=== PATIENT | male | born 1985 | race Caucasian/White ===

== ENCOUNTER 2021-06-29 12:43 | Emergency (ER) | payer MEDICARE ==
[~2021-06-29 12:43] MED LIST: ANTISEPTIC SKI237 ML TP; AUGMENTIN TAB875 MG PO; BACTROBAN15 GM TOP; NAPROSYN500 MG PO; ZYVOX600 MG PO
[2021-06-29] MEDS ORDERED: CEPHALEXIN500 MG PO (14:05)
== END 2021-06-29 14:15 | disposition home or self-care (01) ==
LOC: ER1 12:43
DX: L72.3 Sebaceous cyst (principal); R03.0 Elevated blood-pressure reading, without diagnosis of hypertension; F17.200 Nicotine dependence, unspecified, uncomplicated
CPT/HCPCS: 99283

== ENCOUNTER 2022-01-10 17:19 | Inpatient (IN) | payer OTHER ==
[~2022-01-10] VITALS: Ht 182.9 cm; Wt 95.3 kg
[~2022-01-10 17:19] MED LIST changes: +CEPHALEXIN500 MG PO
[2022-01-10 20:50] LABS: HEMOGLOBIN 11.9 gm/dl (14.0-17.5); RED BLOOD COUNT 3.99 M/UL (4.20-5.50); WHITE BLOOD COUNT 7.6 K/UL (4.5-11.0)
[2022-01-10 21:15] LABS: BUN/CREATININE RATIO 11 (0-10)
[2022-01-11 08:25] LABS: RED BLOOD COUNT 4.03 M/UL (4.20-5.50); WHITE BLOOD COUNT 9.7 K/UL (4.5-11.0)
[2022-01-11 08:51] LABS: BUN/CREATININE RATIO 11 (0-10)
[2022-01-11] MEDS ORDERED: BUPRENORPHIN-N1 EACH SL (10:56)
[2022-01-11] MEDS ORDERED: IBUPROFEN200 MG PO (10:57)
[2022-01-12 07:41] LABS: RED BLOOD COUNT 4.14 M/UL (4.20-5.50); WHITE BLOOD COUNT 9.7 K/UL (4.5-11.0)
[2022-01-12 08:05] LABS: BUN/CREATININE RATIO 12 (0-10)
[2022-01-13 04:42] LABS: HEMOGLOBIN 12.6 gm/dl (14.0-17.5); RED BLOOD COUNT 4.34 M/UL (4.20-5.50); WHITE BLOOD COUNT 9.4 K/UL (4.5-11.0)
[2022-01-13 04:55] LABS: BUN/CREATININE RATIO 14 (0-10)
--- NOTE | 2022-01-13 16:01 | NUR ---
01/12/[address] BELL REGARDING PT PICC LINE ORDER, WILL HOLD OFF ON PLACEMENT UNTIL PT IS SEEN BY YUDITH MONROE ON 01/13/22 FOR RECOMMENDATIONS 01/13/[address] MONROE REGARDING PICC LINE PLACEMENT, DR. MONROE WAITING ON FINAL CULTURE REPORT BEFORE ABX RECOMMENDATION, PT IS REFUSING LTAC/SWING BED STAY FOR ABX THERAPY AT THIS TIME, PER MD DR. MABRY WILL WAITING UNTIL FINAL CULTURE IS BACK BEFORE PLACING PICC LINE.
[2022-01-14] MEDS ORDERED: LISINOPRIL10 MG PO (12:07)
--- NOTE | 2022-01-14 13:34 | NUR ---
01/14/22 1100 SHORT CAM BOOT PROVIDED FOR PT
--- NOTE | 2022-01-14 13:53 | NUR ---
@[id number] MABRY PT IS BEING DC HOME WITH OUTPATIENT TREATMENT NO NEED FOR PICC LINE AT THIS TIME OK TO CANCEL CONSULT FOR PICC NURSE
[2022-01-15 07:12] LABS: HIV AB/P24 AG SCREEN Non Reactive (Non Reactive)
[2022-01-15 08:16] LABS: RPR Non Reactive (Non Reactive)
[2022-01-15 11:16] LABS: HBSAG SCREEN Negative (Negative); HEP B CORE AB, TOT Positive (Negative); HEP C VIRUS AB >11.0 (0.0-0.9)
== END 2022-01-14 13:48 | disposition home or self-care (01) | DRG 871 ==
LOC: ER1 17:19 → M/S 21:05 → CDU 21:05 → M/S 23:08
PROVIDERS: Family Medicine; Internal Medicine; Internal Medicine Infectious Disease; ADMIT Internal Medicine
PROC: 3E03329 Introduction of Other Anti-infective into Peripheral Vein, Percutaneous Approach (ICD-10-PCS; 2022-01-10)
PROC: B24BZZZ Ultrasonography of Heart with Aorta (ICD-10-PCS; principal; 2022-01-12)
DX: A41.02 Sepsis due to Methicillin resistant Staphylococcus aureus (principal); I33.0 Acute and subacute infective endocarditis; F11.20 Opioid dependence, uncomplicated; Z20.822 Contact with and (suspected) exposure to COVID-19; L03.116 Cellulitis of left lower limb; I76 Septic arterial embolism; M79.672 Pain in left foot; I08.1 Rheumatic disorders of both mitral and tricuspid valves; I10 Essential (primary) hypertension; D64.9 Anemia, unspecified; F19.10 Other psychoactive substance abuse, uncomplicated; F17.210 Nicotine dependence, cigarettes, uncomplicated; Z90.49 Acquired absence of other specified parts of digestive tract; Z72.89 Other problems related to lifestyle
CPT/HCPCS: ECHO; 36415; 71046; 73721; 80053; 80202; 81001; 82550; 82553; 83605; 83735; 83880; 84100; 84484; 85025; 85027; 85652; 86140; 86592; 86704; 86706; 86708; 86803; 87040; 87086; 87340; 87389; 93005; 93306; 93312; 93320; 94664; 94760; 96374; 97116-GP-CQ; 97161; 99285; J0878; J1200; J1650; J2185; J2250; J2270; J2310; J2920; J3010; J3370; J7030; J7070; Q0177; U0002

== ENCOUNTER → 2022-01-15 | Outpatient (CLI) | payer OTHER ==
[~2022-01-15] MED LIST changes: +BUPRENORPHIN-N1 EACH SL; +IBUPROFEN200 MG PO; +LISINOPRIL10 MG PO
== END ==
LOC: OPSV 07:36
DX: I38 Endocarditis, valve unspecified (principal)
CPT/HCPCS: 96365; J0878

== ENCOUNTER → 2022-01-16 | Outpatient (CLI) | payer OTHER ==
[~2022-01-16] VITALS: Ht 182.9 cm; Wt 95.3 kg
== END ==
LOC: OPSV 07:00
DX: I38 Endocarditis, valve unspecified (principal)
CPT/HCPCS: 96365; J0878

== ENCOUNTER → 2022-01-17 | Outpatient (CLI) | payer OTHER ==
[~2022-01-17] VITALS: Ht 182.9 cm; Wt 95.3 kg
== END ==
LOC: OPSV 07:00
DX: I38 Endocarditis, valve unspecified (principal)
CPT/HCPCS: 96365; J0878

== ENCOUNTER → 2022-01-18 | Outpatient (CLI) | payer OTHER ==
[~2022-01-18] VITALS: Ht 182.9 cm; Wt 95.3 kg
== END ==
LOC: OPSV 09:00
DX: I38 Endocarditis, valve unspecified (principal); Z88.0 Allergy status to penicillin
CPT/HCPCS: 96365; J0878

== ENCOUNTER → 2022-01-19 | Outpatient (CLI) | payer OTHER ==
[~2022-01-19] VITALS: Ht 182.9 cm; Wt 95.3 kg
== END ==
LOC: OPSV 09:00
DX: I38 Endocarditis, valve unspecified (principal)
CPT/HCPCS: 96365; J0878

== ENCOUNTER → 2022-01-20 | Outpatient (CLI) | payer OTHER ==
[~2022-01-20] VITALS: Ht 182.9 cm; Wt 95.3 kg
== END ==
LOC: OPSV 09:00
DX: I38 Endocarditis, valve unspecified (principal)
CPT/HCPCS: 96365; J0878

== ENCOUNTER → 2022-01-21 | Outpatient (CLI) | payer OTHER ==
[~2022-01-21] VITALS: Ht 182.9 cm; Wt 95.3 kg
== END ==
LOC: OPSV 09:00
DX: I38 Endocarditis, valve unspecified (principal)
CPT/HCPCS: 96365; J0878

== ENCOUNTER → 2022-01-22 | Outpatient (CLI) | payer OTHER ==
[~2022-01-22] VITALS: Ht 182.9 cm; Wt 95.3 kg
== END ==
LOC: OPSV 09:00
DX: I38 Endocarditis, valve unspecified (principal)
CPT/HCPCS: 96365; J0878

== ENCOUNTER → 2022-01-23 | Outpatient (CLI) | payer OTHER ==
[~2022-01-23] VITALS: Ht 182.9 cm; Wt 95.3 kg
== END ==
LOC: OPSV 07:00 → EROP 07:00
DX: I38 Endocarditis, valve unspecified (principal)
CPT/HCPCS: 96365; J0878

== ENCOUNTER → 2022-01-24 | Outpatient (CLI) | payer OTHER | LOC: OPSV 07:00 → EROP 09:14 | DX: I38 Endocarditis, valve unspecified (principal) | CPT/HCPCS: 96365; J0878 ==

== ENCOUNTER → 2022-01-25 | Outpatient (CLI) | payer OTHER ==
[~2022-01-25] VITALS: Ht 182.9 cm; Wt 95.3 kg
== END ==
LOC: OPSV 09:00
DX: I38 Endocarditis, valve unspecified (principal)
CPT/HCPCS: 96365; J0878

== ENCOUNTER → 2022-01-26 | Outpatient (CLI) | payer OTHER | LOC: OPSV 09:00 | DX: I38 Endocarditis, valve unspecified (principal) | CPT/HCPCS: 96365; J0878 ==

== ENCOUNTER → 2022-01-27 | Outpatient (CLI) | payer OTHER ==
[~2022-01-27] VITALS: Ht 182.9 cm; Wt 95.3 kg
== END ==
LOC: OPSV 09:00
DX: I38 Endocarditis, valve unspecified (principal)
CPT/HCPCS: 96365; J0878

== ENCOUNTER → 2022-01-28 | Outpatient (CLI) | payer OTHER ==
[~2022-01-28] VITALS: Ht 182.9 cm; Wt 95.3 kg
== END ==
LOC: OPSV 09:00
DX: I38 Endocarditis, valve unspecified (principal)
CPT/HCPCS: 96365; C1751; J0878

== ENCOUNTER → 2022-01-29 | Outpatient (CLI) | payer OTHER ==
[~2022-01-29] VITALS: Ht 182.9 cm; Wt 95.3 kg
== END ==
LOC: OPSV 09:00
DX: I38 Endocarditis, valve unspecified (principal)
CPT/HCPCS: 96365; J0878

== ENCOUNTER → 2022-01-30 | Outpatient (CLI) | payer OTHER | LOC: OPSV 07:00 → EROP 07:00 | DX: I38 Endocarditis, valve unspecified (principal) | CPT/HCPCS: 96365; J0878 ==

== ENCOUNTER → 2022-01-31 | Outpatient (CLI) | payer OTHER | LOC: OPSV 07:00 → EROP 07:00 | DX: I38 Endocarditis, valve unspecified (principal) | CPT/HCPCS: 96365; J0878 ==

== ENCOUNTER → 2022-02-01 | Outpatient (CLI) | payer OTHER ==
[~2022-02-01] VITALS: Ht 182.9 cm; Wt 95.3 kg
== END ==
LOC: OPSV 09:00
DX: I38 Endocarditis, valve unspecified (principal)
CPT/HCPCS: 96365; J0878

== ENCOUNTER → 2022-02-02 | Outpatient (CLI) | payer OTHER | LOC: OPSV 09:00 | DX: I38 Endocarditis, valve unspecified (principal) | CPT/HCPCS: 96365; J0878 ==

== ENCOUNTER → 2022-02-03 | Outpatient (CLI) | payer OTHER ==
[~2022-02-03] VITALS: Ht 182.9 cm; Wt 95.3 kg
== END ==
LOC: OPSV 09:00
DX: I38 Endocarditis, valve unspecified (principal)
CPT/HCPCS: 96365; J0878

== ENCOUNTER → 2022-02-04 | Outpatient (CLI) | payer OTHER | LOC: OPSV 09:00 | DX: I38 Endocarditis, valve unspecified (principal) | CPT/HCPCS: 96365; J0878 ==

== ENCOUNTER → 2022-02-07 | Outpatient (CLI) | payer OTHER ==
[~2022-02-07] VITALS: Ht 182.9 cm; Wt 95.3 kg
== END ==
LOC: OPSV 07:00 → EROP 07:00
DX: I38 Endocarditis, valve unspecified (principal)
CPT/HCPCS: 96365; J0878

== ENCOUNTER → 2022-02-08 | Outpatient (CLI) | payer OTHER | LOC: OPSV 07:56 | DX: I38 Endocarditis, valve unspecified (principal) | CPT/HCPCS: 96365; C1751; J0878 ==

== ENCOUNTER → 2022-02-09 | Outpatient (CLI) | payer OTHER ==
[2022-02-09 10:46] LABS: HEMOGLOBIN 14.2 gm/dl (14.0-17.5); RED BLOOD COUNT 4.71 M/UL (4.20-5.50); WHITE BLOOD COUNT 7.9 K/UL (4.5-11.0)
[2022-02-09 11:10] LABS: BUN/CREATININE RATIO 27 (0-10)
== END ==
LOC: OPSV 09:00
PROVIDERS: Internal Medicine Infectious Disease
DX: I38 Endocarditis, valve unspecified (principal)
CPT/HCPCS: 80048; 82550; 85025; 86140; 96365; J0878

== ENCOUNTER → 2022-02-10 | Outpatient (CLI) | payer OTHER ==
[~2022-02-10] VITALS: Ht 182.9 cm; Wt 95.3 kg
== END ==
LOC: OPSV 09:00
DX: I38 Endocarditis, valve unspecified (principal)
CPT/HCPCS: 96365; J0878

== ENCOUNTER → 2022-02-11 | Outpatient (CLI) | payer OTHER | LOC: OPSV 09:00 | DX: I38 Endocarditis, valve unspecified (principal); Z88.0 Allergy status to penicillin | CPT/HCPCS: 96365; J0878 ==

== ENCOUNTER → 2022-02-13 | Outpatient (CLI) | payer OTHER | LOC: OPSV 07:00 → EROP 11:46 | DX: I38 Endocarditis, valve unspecified (principal) | CPT/HCPCS: 96365; J0878 ==

== ENCOUNTER → 2022-02-14 | Outpatient (CLI) | payer OTHER | LOC: OPSV 07:00 | DX: I38 Endocarditis, valve unspecified (principal) | CPT/HCPCS: 96365; J0878 ==

== ENCOUNTER → 2022-02-15 | Outpatient (CLI) | payer OTHER | LOC: OPSV 09:00 | DX: I38 Endocarditis, valve unspecified (principal) | CPT/HCPCS: 96365; J0878 ==

== ENCOUNTER → 2022-02-16 | Outpatient (CLI) | payer OTHER ==
[~2022-02-16] VITALS: Ht 185.4 cm; Wt 95.3 kg
== END ==
LOC: OPSV 09:00
DX: I38 Endocarditis, valve unspecified (principal)
CPT/HCPCS: 96365; J0878

== ENCOUNTER → 2022-02-18 | Outpatient (CLI) | payer OTHER ==
[~2022-02-18] VITALS: Ht 182.9 cm; Wt 95.3 kg
[2022-02-18 10:36] LABS: HEMOGLOBIN 13.1 gm/dl (14.0-17.5); RED BLOOD COUNT 4.28 M/UL (4.20-5.50); WHITE BLOOD COUNT 10.2 K/UL (4.5-11.0)
[2022-02-18 10:55] LABS: BUN/CREATININE RATIO 24 (0-10)
== END ==
LOC: OPSV 09:00
PROVIDERS: Internal Medicine Infectious Disease
DX: I38 Endocarditis, valve unspecified (principal)
CPT/HCPCS: 80048; 82550; 85025; 86140; 96365; J0878

== ENCOUNTER → 2022-02-19 | Outpatient (CLI) | payer OTHER ==
[~2022-02-19] VITALS: Ht 182.9 cm; Wt 95.3 kg
== END ==
LOC: OPSV 07:00 → EROP 12:44
DX: I38 Endocarditis, valve unspecified (principal)
CPT/HCPCS: 96365; J0878

== ENCOUNTER → 2022-02-20 | Outpatient (CLI) | payer OTHER ==
[~2022-02-20] VITALS: Ht 182.9 cm; Wt 95.3 kg
== END ==
LOC: OPSV 07:00
DX: I38 Endocarditis, valve unspecified (principal)
CPT/HCPCS: 96365; J0878